=== PATIENT | female | born 1980 | race Caucasian/White ===

== ENCOUNTER 2019-07-17 10:38 | Emergency (ER) | payer MEDICAID, SELFPAY ==
[2019-07-17 10:46] VITALS: BP 135/88; PULSE 72; RESP 20; TEMP 36.6; O2SAT 100; BMI 23.4
--- NOTE | 2019-07-17 10:49 | W.ED.URI ---
HPI - URI/Sore Throat General: Stated Complaint: FB in nose Time Seen by Provider: 07/17/19 10:48 PFSH ED PFSH: Statuses (acute, chronic, etc) shown below reflect problem list status as previously entered and may not be historically accurate Social History (Updated 07/17/19 @ 09:22 by Mohini Mak LPN) Smoking and tobacco status: never smoked Alcohol intake: current Alcohol intake frequency: holidays/special occasions only Desire information about alcohol rehabilitation?: No Desire information about substance/drug rehabilitation?: No History of recent travel: No Discharge Plan Discharge Prescriptions: No Action No Known Home Medications RF: 0 Coding Level of Care Code ED Make Up Arranger for Edith Garcia
[2019-07-17 10:53] VITALS: BP 131/80; PULSE 74; RESP 15; O2SAT 100
--- NOTE | 2019-07-17 10:54 | W.ED.EAR ---
HPI - Ear Problem General: Chief complaint: Ear Stated complaint: FB in nose Time Seen by Provider: 07/17/19 10:48 PFSH ED PFSH: Statuses (acute, chronic, etc) shown below reflect problem list status as previously entered and may not be historically accurate Social History (Updated 07/17/19 @ 09:22 by Mohini Mak LPN) Smoking and tobacco status: current every day smoker Alcohol intake: current Alcohol intake frequency: holidays/special occasions only Desire information about alcohol rehabilitation?: No Desire information about substance/drug rehabilitation?: No History of recent travel: No Course Vital Signs: Vital signs: Vital Signs Temperature 98 F 07/17/19 10:46 Pulse Rate 72 07/17/19 10:46 Respiratory Rate 20 H 07/17/19 10:46 Blood Pressure 135/88 07/17/19 10:46 Pulse Oximetry 100 07/17/19 10:46 Discharge Plan Discharge Prescriptions: No Action No Known Home Medications RF: 0 Coding Level of Care Code ED Detention Attendant for Edith Garcia
--- NOTE | 2019-07-17 10:57 | PC.NURSE ---
Patient reports that she was sleeping 2 nights ago when she felt like a bug moving around in her right nostril. Patient states that she tried getting it out with saline flush. Patient reports that she never visualized it coming out with multiple flushes. Patient states that it feels like something is stuck in there. Patient reports that she was seen by the clinic in [place] and they reported they saw it but was unable to get it out and sent her here.
--- NOTE | 2019-07-17 11:10 | ED.PEDHENT ---
HPI - Pediatric HENT General: Chief complaint: Skin/Abscess/Foreign Body Stated complaint: FB in nose Time Seen by Provider: 07/17/19 10:48 Source: patient Mode of arrival: ambulatory Limitations: no limitations History of Present Illness: HPI Narrative: Patient is a 38-year-old female who presents to ED today with a possible insect to her right nare. Patient states in the middle of the night she felt something crawl up her nose. She states that she could feel it moving around and thus decided to perform Grisel pot irrigation. Patient states she can no longer feel the insect move but feels like something might be stuck. Patient was seen at a outlying clinic and referred to the emergency department for evaluation. MD complaint: foreign body and other Onset (ago): hour(s) Fever: No Pain location: nose Pain Consistency: constant Context: none Associated symtoms: Reports no associated symptoms Treatments prior to arrival: other (Nasal irrigation) Pediatric ROS Review of Systems: EARS, NOSE, MOUTH, THROAT: no headaches, no lightheadedness, no ear pain, no nasal congestion, no rhinorrhea, no epistaxis and no mouth breathing PFSH ED PFSH: Statuses (acute, chronic, etc) shown below reflect problem list status as previously entered and may not be historically accurate Social History (Updated 07/17/19 @ 09:22 by Mohini Mak LPN) Smoking and tobacco status: current every day smoker Alcohol intake: current Alcohol intake frequency: holidays/special occasions only Desire information about alcohol rehabilitation?: No Desire information about substance/drug rehabilitation?: No History of recent travel: No Pediatric Exam Const: Constitutional General: cooperative, healthy appearing, comfortable, no acute distress, well developed, alert and awake HENMT: Nose: external nose normal, nares normal, nasal mucous membranes and turbinates normal, septum normal and other (I cannot visualize a foreign body in right nare) Course Vital Signs: Vital signs: Vital Signs Temperature 98 F 07/17/19 10:46 Pulse Rate 77 07/17/19 11:12 Respiratory Rate 16 07/17/19 11:12 Blood Pressure 113/80 07/17/19 11:12 Pulse Oximetry 98 07/17/19 11:12 Medical Decision Making MDM Narrative: Medical decision making narrative: I cannot visualize any foreign body to patient's right nare. She will be referred to ENT early next week for further evaluation/extraction. We will go ahead and cover her with antibiotics. Discharge Plan Discharge Patient Disposition: Home, Self-Care Clinical Impression: Foreign body in nasal sinus, initial encounter Condition: Stable Prescriptions: New Augmentin 875-125 mg tablet 1 tab PO Q12H 7 Days Qty: 14 RF: 0 Discharge Orders: Discharge Order (Routine); Ordered 07/17/19 Ordered By: Mara Borden Activity Restrictions/Additional Instructions: Case management should contact you on Friday to set you up with an appointment with Dr. Cloud, ENT. Discharge Date/Time: 07/17/19 11:15 Coding Level of Care Code ED Lean Manufacturing Coordinator for Edith Garcia
[2019-07-17 11:12] VITALS: BP 113/80; PULSE 77; RESP 16; O2SAT 98
--- NOTE | 2019-07-19 09:54 | DCPLANNER ---
government contracts manager had message to schedule a follow up appointment with ENT. government contracts manager called the office of Dr. Cloud, a follow up appointment is scheduled for Friday, July 19, 2019 at 10:15. Clinic will contact patient with appointment information.
== END 2019-07-17 11:15 | disposition home or self-care (01) ==
LOC: ER 11:19
PROVIDERS: Emergency Provider Physician Assistant
DX: T17.0XXA Foreign body in nasal sinus, initial encounter (principal); X58.XXXA Exposure to other specified factors, initial encounter; F17.210 Nicotine dependence, cigarettes, uncomplicated
CPT/HCPCS: 99281; 99282

== ENCOUNTER → 2019-07-19 10:09 | Outpatient (BNVA) | payer MEDICAID, SELFPAY | PROVIDERS: Visit Provider Otolaryngology | DX: J34.2 Deviated nasal septum (principal); J34.3 Hypertrophy of nasal turbinates; T17.908A Unspecified foreign body in respiratory tract, part unspecified causing other injury, initial encounter; X58.XXXA Exposure to other specified factors, initial encounter | CPT/HCPCS: 31575; 99214 ==